=== PATIENT | female | born 1960 | race African-American/Black ===

== ENCOUNTER 2017-01-17 17:09 | Emergency (ER) | payer OTHER ==
[~2017-01-17] VITALS: Ht 170.2 cm; Wt 90.7 kg
[~2017-01-17 17:09] MED LIST: IBUPROFEN 800800 MG PO; MEDROLDOSEPACK PO; NORCO 5-325 TA1 EACH PO
[2017-01-17 17:38] LABS: ABSOLUTE NEUTROPHILS 3.5 thou/uL (1.4-8.2); BASOPHILS 0.9 % (0.0-2.0); EOSINOPHILS 1.5 % (0.0-3.0); HEMATOCRIT 40.4 % (37.0-47.0); HEMOGLOBIN 13.7 gm/dL (12.0-15.0); LYMPHOCYTES 45.1 % (24.0-44.0); MCH 31.4 pg (26.0-34.0); MCV 92.5 fL (80.0-100.0); MONOCYTES 10.2 % (1.0-8.0); PLATELET COUNT 227 thou/uL (150-400); POLYS 42.3 % (36.0-66.0); RBC 4.36 mil/uL (4.20-5.00); RDW 12.6 % (10.5-14.5); WBC 8.2 thou/uL (4.0-11.0)
[2017-01-17 17:39] LABS: MANUAL DIFF NO
[2017-01-17 17:45] LABS: CALCIUM 9.6 mg/dL (8.5-10.1); POTASSIUM 4.1 mmol/L (3.5-5.1)
[2017-01-17 17:50] LABS: ALBUMIN 4.4 g/dL (3.4-5.0); TOTAL BILIRUBIN 0.5 mg/dL (<0.1-1.0); TOTAL PROTEIN 8.1 g/dL (6.4-8.2)
[2017-01-17] MEDS ORDERED: TRAMADOL 50 MG50 MG PO (19:00)
[2017-01-17 19:37] VITALS: BP 101/50
== END 2017-01-17 19:38 | disposition home or self-care (01) ==
LOC: ER 17:09
PROVIDERS: Nurse Practitioner Family
DX: R07.89 Other chest pain (principal); R10.11 Right upper quadrant pain; F17.210 Nicotine dependence, cigarettes, uncomplicated

== ENCOUNTER 2018-02-16 11:01 | Emergency (ER) | payer OTHER ==
[~2018-02-16] VITALS: Ht 170.2 cm; Wt 97.5 kg
--- NOTE | ~2018-02-16 | EKG ---
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 02/17/18 0746 1114 13 Herbert Payotn MD, FACC /EPI
[~2018-02-16 11:01] MED LIST changes: +TRAMADOL 50 MG50 MG PO
[2018-02-16 11:47] LABS: HEMOGLOBIN 13.3 gm/dL (12.0-15.0); MCH 31.4 pg (26.0-34.0); MCHC 34.2 g/dL (28.0-37.0); MCV 91.8 fL (80.0-100.0); RBC 4.25 mil/uL (4.20-5.00); RDW 12.6 % (10.5-14.5); WBC 8.3 thou/uL (4.0-11.0)
[2018-02-16 11:55] LABS: CALCIUM 9.5 mg/dL (8.5-10.1); CREATININE 0.9 mg/dL (0.6-1.0); POTASSIUM 4.5 mmol/L (3.5-5.1)
[2018-02-16 11:58] LABS: TOTAL BILIRUBIN 0.3 mg/dL (<0.1-1.0); TOTAL PROTEIN 7.9 g/dL (6.4-8.2)
[2018-02-16 13:24] VITALS: BP 129/68
[2018-02-16] MEDS ORDERED: HYDROXYZINE HCL25 M2 GT (13:38)
== END 2018-02-16 13:24 | disposition home or self-care (01) ==
LOC: ER 11:01
PROVIDERS: Student in an Organized Health Care Education/Training Program
DX: R06.02 Shortness of breath (principal); F41.9 Anxiety disorder, unspecified; R05 Cough; F17.210 Nicotine dependence, cigarettes, uncomplicated

== ENCOUNTER 2019-02-28 16:19 | Emergency (ER) | payer OTHER ==
[~2019-02-28] VITALS: Ht 170.2 cm; Wt 93.0 kg
[~2019-02-28 16:19] MED LIST changes: +HYDROXYZINE HCL25 M2 GT
[2019-02-28 16:40] LABS: URINE BILIRUBIN NEGATIVE (Negative); URINE BLOOD NEGATIVE (Negative); URINE CLARITY CLEAR; URINE COLOR YELLOW; URINE GLUCOSE-RANDOM* NEGATIVE (Negative); URINE KETONES NEGATIVE (Negative); URINE LEUKOCYTES-REFLEX NEGATIVE (Negative); URINE NITRITE-REFLEX NEGATIVE (Negative); URINE PROTEIN (DIPSTICK) NEGATIVE (Negative); URINE SPECIFIC GRAVITY >= 1.030 (1.005-1.035); URINE UROBILINOGEN 0.2 E.U./dl (0.2-1.0)
[2019-02-28 17:05] LABS: BASOPHILS 1.1 % (0.0-2.0); EOSINOPHILS 1.7 % (0.0-3.0); HEMATOCRIT 40.6 % (37.0-47.0); HEMOGLOBIN 13.7 gm/dL (12.0-15.0); LYMPHOCYTES 36.9 % (24.0-44.0); MCH 31.4 pg (26.0-34.0); MCHC 33.8 g/dL (28.0-37.0); MONOCYTES 10.4 % (1.0-8.0); PLATELET COUNT 283 thou/uL (150-400); POLYS 49.9 % (36.0-66.0); RBC 4.37 mil/uL (4.20-5.00); RDW 12.6 % (10.5-14.5)
[2019-02-28 17:14] LABS: CALCIUM 9.5 mg/dL (8.5-10.1); POTASSIUM 4.3 mmol/L (3.5-5.1)
[2019-02-28 17:21] LABS: LIPASE 535 U/L (73-393); TROPONIN-I <0.06 ng/mL (<0.06)
[2019-02-28 18:36] VITALS: BP 107/53
[2019-02-28] MEDS ORDERED: TYLENOL EXTRA500 MG PO (18:47)
--- NOTE | 2019-03-01 09:43 | EKG ---
[place] [address] [facility] [place] [address] ELECTROCARDIOGRAM REPORT Name: ANGEL SANCHEZ Room #: 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 : 1960 Requested By: Bernard Boogie Order Number: [id number] MD: Herbert Payton Measurements Intervals [place] Rate: 72 P: 32 UT: 125 QRS: 35 QRSD: 87 T: 31 QT: 382 QTc: 419 Interpretive Statements Sinus rhythm Normal tracing Compared to ECG 02/16/2018 11:14:51 Sinus bradycardia no longer present Electronically Signed On 03-01-2019 9:43:25 CDT by Herbert Payton [email or web address] ��������������������������������������������� <ELECTRONICALLY SIGNED> ���������������������������������������� By: Herbert Payton MD, [facility] ��������������������������������������������� 03/01/19 0943 1655 1655 Herbert Payton MD, FACC /EPI
== END 2019-02-28 18:55 | disposition home or self-care (01) ==
LOC: ER 16:19
PROVIDERS: Emergency Medicine
DX: R10.12 Left upper quadrant pain (principal); F17.210 Nicotine dependence, cigarettes, uncomplicated